=== PATIENT | male | born 1990 | race African-American/Black ===

== ENCOUNTER 2021-02-11 17:31 | Emergency (ER) | payer SELFPAY | END 2021-02-11 17:55 | disposition home or self-care (01) | LOC: CSHERS 17:31 | DX: K08.89 Other specified disorders of teeth and supporting structures (principal); F17.290 Nicotine dependence, other tobacco product, uncomplicated | CPT/HCPCS: 99283 ==

== ENCOUNTER 2021-02-28 16:02 | Emergency (ER) | payer SELFPAY ==
[2021-02-28] MEDS ORDERED: Ketorolac Tromethamine 30 MG/ML VIAL ONE (16:37)
== END 2021-02-28 16:57 | disposition home or self-care (01) ==
LOC: CSHERS 16:02
DX: K02.9 Dental caries, unspecified (principal); F17.290 Nicotine dependence, other tobacco product, uncomplicated
CPT/HCPCS: 96372; 99282; J1885